=== PATIENT | male | born 1970 | race African-American/Black ===

== ENCOUNTER 2020-12-29 10:08 | Emergency (ER) | payer OTHER ==
--- NOTE | 2020-12-29 11:35 | ER ---
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 Reports concern for STD. Coronavirus screen: At this time, the client does not indicate any symptoms associated with coronavirus-19. Ebola Screen: No symptoms or risks identified at this time. Initial Sepsis Screen: Does the patient meet any 2 criteria? No. Patient's initial sepsis screen is negative. Does the patient have a suspected source of infection? No. Patient's initial sepsis screen is negative. Risk Assessment: Do you want to hurt yourself or someone else? Patient reports no desire to harm self or others. Onset of symptoms was December 29, 2020. Care prior to arrival: None. 10:42 Method Of Arrival: Ambulatory jl7 10:42 Acuity: ALINA 4 jl7 Triage Assessment: 10:46 General: Appears in no apparent distress. uncomfortable, Behavior is cooperative, jl7 appropriate for age, anxious. Pain: Denies pain. Historical: - Allergies: 10:46 No Known Allergies; jl7 - Home Meds: 10:46 Eliquis oral [Active]; citalopram oral [Active]; jl7 11:09 invega [Active]; oh - PMHx: 10:46 Bipolar disorder; Schizophrenia; DVT; jl7 - Immunization history:: Adult Immunizations not up to date, Client reports having NOT received the Covid vaccine. - Social history:: Smoking status: Patient reports the use of cigarette tobacco products, smokes one pack cigarettes per day. Screenin:03 Abuse screen: Denies threats or abuse. Nutritional screening: No deficits noted. oh Tuberculosis screening: No symptoms or risk factors identified. Fall Risk None identified. Assessment: 11:01 General: Appears in no apparent distress. Behavior is calm, cooperative, appropriate oh for age, Reports abnormal discharge from penis. Pain: Complains of pain in penis. Neuro: No deficits noted. Cardiovascular: No deficits noted. Respiratory: No deficits noted. GI: No deficits noted. : Reports discharge, from penis that is yellow. EENT: No deficits noted. Derm: No deficits noted. Musculoskeletal: No deficits noted. 11:50 Reassessment: Patient appears in no apparent distress at this time. No changes from tw2 previously documented assessment. Patient and/or family updated on plan of care and expected duration. Pain level reassessed. Patient is alert, oriented x 3, equal unlabored respirations, skin warm/dry/pink. Vital Signs: 10:42 BP 124 / 78; Pulse 98; Resp 17 S; Temp 98.4(O); Pulse Ox 100% on R/A; Weight 137.89 kg jl7 (R); Height 6 ft. (182.88 cm); 10:42 Body Mass Index 41.23 (137.89 kg, 182.88 cm) jl7 ED Course: 10:11 Patient arrived in ED. mr 10:46 Triage completed. jl7 10:46 Arm band placed on right wrist. jl7 10:49 Jamar Rosado PA is PHCP. cp 10:49 Juventino Avendaño MD is Attending Physician. cp 11:08 Bed in low position. Call light in reach. oh 11:50 Aminah Yee, RN is Primary Nurse. tw2 11:50 No provider procedures requiring assistance completed. Patient did not have IV access tw2 during this emergency room visit. Administered Medications: No medications were administered Outcome: 11:34 Discharge ordered by MD. cp 11:50 Discharged to home ambulatory. tw2 11:50 Condition: stable 11:50 Discharge instructions given to patient, Instructed on discharge instructions, follow up and referral plans. medication usage, Demonstrated understanding of instructions, follow-up care, medications, Prescriptions given X 2. 11:50 Patient left the ED. tw2 Signatures: Kady Renee mr Jamar Rosado PA PA cp Aminah Yee, RN RN tw2 Christie Schulz RN RN jl7 Lety Eric RN RN oh
--- NOTE | 2020-12-29 11:35 | EDPHYS ---
Physician Documentation [facility] Name: Ervin Reynoso Age: 50 yrs Sex: Male : 1970 Arrival Date: 12/29/2020 Time: 10:11 Bed 11 Private MD: ED Physician Juventino Avendaño HPI: 12/29 11:30 This 50 yrs old Black Male presents to ER via Ambulatory with complaints of Male cp Problems. 11:30 The patient presents with pain and rash to head of penis. cp 11:30 Onset: The symptoms/episode began/occurred today. Associated signs and symptoms: cp Pertinent negatives: abdominal pain, fever, penile discharge. Patient reports noticing discomfort to head of penis 2-3 days ago and this morning noticing rash. Patient reports history of herpes exposure from ex . Historical: - Allergies: 10:46 No Known Allergies; jl7 - Home Meds: 10:46 Eliquis oral [Active]; citalopram oral [Active]; jl7 11:09 invega [Active]; oh - PMHx: 10:46 Bipolar disorder; Schizophrenia; DVT; jl7 - Immunization history:: Adult Immunizations not up to date, Client reports having NOT received the Covid vaccine. - Social history:: Smoking status: Patient reports the use of cigarette tobacco products, smokes one pack cigarettes per day. ROS: 11:31 Constitutional: Negative for fever. cp 11:31 Abdomen/GI: Negative for abdominal pain, nausea, vomiting, and diarrhea. 11:31 : Positive for of the head of penis, rash, Negative for urinary symptoms, testicular pain 11:31 Neuro: Negative for altered mental status, headache, weakness. 11:31 All other systems are negative. Exam: 11:32 Constitutional: The patient appears in no acute distress, alert, awake, non-toxic, well cp developed, well nourished, obese. 11:32 Head/Face: Normocephalic, atraumatic. cp 11:32 Cardiovascular: Rate: normal. cp 11:32 Respiratory: the patient does not display signs of respiratory distress, Respirations: normal, no use of accessory muscles, no retractions, labored breathing, is not present. 11:32 Abdomen/GI: Exam negative for discomfort, distension, guarding, Inspection: abdomen appears normal. 11:32 : Male external genitalia: erythema, of the head of penis is seen, that is moderate, cp tenderness, of the head of penis is noted, that is moderate, rash appears with mild ulceration and small vesicular lesions. Vital Signs: 10:42 BP 124 / 78; Pulse 98; Resp 17 S; Temp 98.4(O); Pulse Ox 100% on R/A; Weight 137.89 kg jl7 (R); Height 6 ft. (182.88 cm); 10:42 Body Mass Index 41.23 (137.89 kg, 182.88 cm) jl7 MDM: 10:50 Patient medically screened. cp 11:34 Data reviewed: vital signs, nurses notes, and as a result, I will discharge patient. cp 11:34 Counseling: I had a detailed discussion with the patient and/or guardian regarding: the cp historical points, exam findings, and any diagnostic results supporting the discharge/admit diagnosis, the need for outpatient follow up, a family practitioner, to return to the emergency department if symptoms worsen or persist or if there are any questions or concerns that arise at home. Administered Medications: No medications were administered Disposition: 11:40 Chart complete. cp 12:53 Co-signature as Attending Physician, Juventino Avendaño MD I agree with the assessment and rn plan of care. Attestation: The patient's history, exam findings, diagnostics, and a summary of any interventions or procedures was reviewed in detail with Jamar YATES. 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 cp Followup: cp - With: Private Physician - When: 2 - 3 days - Reason: Recheck today's complaints Discharge Instructions: - Discharge Summary Sheet cp - Genital Herpes cp Forms: - Medication Reconciliation Form cp - Thank You Letter cp - Antibiotic Education cp - Prescription Opioid Use cp - Work release form tw2 Prescriptions: - nystatin 100,000 unit/gram Topical ointment - apply 1 application by TOPICAL route 3 times per day for 8-10 days apply to cp head of penis; 1 tube; Refills: 0, Product Selection Permitted - Acyclovir 200 mg Oral Capsule - take 1 capsule by ORAL route 5 times per day; 50 capsule; Refills: 0, Product cp Selection Permitted Signatures: Avendaño, Juventino, Jamar Marquez MD, rn, PA PA cp Leal, Jahala RN RN jl7 Lety Eric RN RN oh Corrections: (The following items were deleted from the chart) 12/30 07:15 12/29 11:32 Skin: rash can be described as erythematous, vesicular, on the head of cp penis, cp
[2020-12-29 11:58] VITALS: BP 124/78; TEMP 98.4; O2SAT 100
== END 2020-12-29 11:50 | disposition home or self-care (01) ==
LOC: ER 10:08
DX: A60.01 Herpesviral infection of penis (principal); F17.210 Nicotine dependence, cigarettes, uncomplicated; F20.9 Schizophrenia, unspecified; Z86.718 Personal history of other venous thrombosis and embolism; Z79.01 Long term (current) use of anticoagulants
CPT/HCPCS: 99282